=== PATIENT | male | born 1975 | race Caucasian/White ===

== ENCOUNTER 2017-11-25 01:55 | Inpatient (IN) | payer SELFPAY ==
[~2017-11-25] VITALS: Ht 185.4 cm; Wt 137.5 kg
[2017-11-25 03:15] LABS: HEMATOCRIT 37.9 % (38.0-50.0); HEMOGLOBIN 12.4 G/DL (12.5-16.6); MCH 27.2 PG (29.0-34.0); MCHC 32.7 G/DL (30.0-36.0); MCV 83.1 FL (86-99); PLATELET COUNT 253 K/uL (156-360); RBC DIS.WIDTH-CV 14.5 % (11.8-14.6); RBC DIS.WIDTH-SD 44.1 % (39-53); RED BLOOD COUNT 4.56 M/uL (4.00-5.50); WHITE BLOOD COUNT 7.1 K/uL (4.1-10.2)
[2017-11-25 03:29] LABS: CHLORIDE 105 mEq/L (99-109); POTASSIUM 4.3 mEq/L (3.7-5.4); SODIUM 140 mEq/L (136-147)
[2017-11-25 03:30] LABS: GLUCOSE 104 mg/dL (70-99)
[2017-11-25 03:33] LABS: SERUM ETHYL ALCOHOL < 10 mg/dL
[2017-11-25 03:34] LABS: CREATININE 0.8 mg/dL (0.6-1.3); GFR ESTIMATE (CALCULATED) > 59 mL/min/ (58.99-99999)
[2017-11-25 03:35] LABS: UREA NITROGEN (BUN) 17 mg/dL (9-23)
[2017-11-25 04:49] VITALS: BP 123/80
[2017-11-25 07:38] VITALS: BP 115/65
[2017-11-25 16:19] VITALS: BP 147/85
[2017-11-26 07:28] VITALS: BP 137/63
[2017-11-26 15:23] VITALS: BP 133/75
[2017-11-26 15:32] LABS: ALBUMIN 3.7 g/dL (3.2-4.8)
[2017-11-26 15:35] LABS: TOTAL PROTEIN 6.2 g/dL (6.4-8.3)
[2017-11-26 15:37] LABS: TOTAL BILIRUBIN 0.1 mg/dL (0.0-1.0)
[2017-11-26 15:38] LABS: ALKALINE PHOSPHATASE 67 IU/L (3-129)
[2017-11-26 15:40] LABS: AST (GOT) 26 IU/L (2-34); DIRECT BILIRUBIN 0.1 mg/dL (0.0-0.3)
[2017-11-26 15:41] LABS: ALT (GPT) 49 IU/L (3-49)
[2017-11-27 07:25] VITALS: BP 110/62
[2017-11-27 16:04] VITALS: BP 109/56
[2017-11-28 07:30] VITALS: BP 114/65
[2017-11-28 15:35] VITALS: BP 123/69
[2017-11-29 08:44] VITALS: BP 114/58
[2017-11-29] MEDS ORDERED: CEPHALEXIN500 MG PO (09:44)
[2017-11-29] MEDS ORDERED: BUPROPION XL150 MG PO (09:44)
== END 2017-11-29 11:01 | disposition home or self-care (01) | DRG 883 ==
LOC: EME 01:55 → 1WEST 03:41 → EDOF 03:41 → ENRESERV 04:19 → 1WEST 04:39
PROVIDERS: Emergency Medicine
DX: F60.9 Personality disorder, unspecified (principal); F32.9 Major depressive disorder, single episode, unspecified; F12.90 Cannabis use, unspecified, uncomplicated; E66.01 Morbid (severe) obesity due to excess calories; R45.851 Suicidal ideations; M79.89 Other specified soft tissue disorders; I07.1 Rheumatic tricuspid insufficiency; J45.909 Unspecified asthma, uncomplicated; F17.200 Nicotine dependence, unspecified, uncomplicated; I87.2 Venous insufficiency (chronic) (peripheral); Z81.8 Family history of other mental and behavioral disorders; Z68.41 Body mass index [BMI] 40.0-44.9, adult; L03.90 Cellulitis, unspecified
CPT/HCPCS: 80048; 80076; 80306 90; 85027; 87641; 90839; 93306; 93970; 97150 GO; 97165 GO; 99281; 99285; G0480